=== PATIENT | male | born 1995 | race Caucasian/White ===

== ENCOUNTER 2018-07-06 10:44 | Inpatient (IN) ==
[2018-07-06 11:35] LABS: Basophils # (auto) 0.07 K/uL (0-0.2); Basophils % (auto) 0.8 %; Eosinophils # (auto) 0.41 K/uL (0-0.5); Eosinophils % (auto) 4.9 %; Hematocrit (blood only) 46.4 % (42-52); Immature Granulocytes # (auto) 0.02 K/uL (0.00-0.02); Immature Granulocytes % (auto) 0.2 %; Lymphocytes # (auto) 3.61 K/uL (1.2-3.4); Lymphocytes % (auto) 43.5 %; Mean Corpuscular Hgb Conc 34.5 g/dL (32-36); Mean Corpuscular Volume 87.9 fL (80-100); Mean Platelet Volume 10.6 fL (7.4-10.4); Monocytes % (auto) 10.9 %; Neutrophils # (auto) 3.28 K/uL (1.4-6.5); Neutrophils % (auto) 39.7 %; Platelet Count 353 K/uL (130-400); RDW Coefficient of Variation 13.1 % (11.5-14.5); RDW Standard Deviation 42.2 fL (36.4-46.3); Red Blood Count 5.28 M/uL (4.7-6.1); White Blood Count 8.29 K/uL (4.8-10.8)
[2018-07-06 11:53] LABS: Appearance Urine Clear (Clear); Bilirubin Urine Negative (Negative); Blood Urine Negative (Negative); Color Urine Dark Yellow; Glucose Urine UA Negative (Negative); Ketones Urine Trace (Negative); Leukocyte Esterase Urine Negative (Negative); Nitrite Urine Negative (Negative); Protein Urine Negative (Negative); Specific Gravity Urine 1.027 (1.000-1.030); Urobilinogen Urine Negative (Negative)
[2018-07-06 12:02] LABS: Albumin Level 4.2 gm/dl (3.4-5.0); BUN Creatinine Ratio 13.4 (10-20); Creatinine Clr Calc Pharmacy 125.6 ml/min; Est GFR (Non-African American) 123.4
[2018-07-06 12:13] LABS: Bilirubin,Total 0.9 mg/dl (0.2-1); Globulin 4.1 gm/dl (2.5-4.0); Potassium 4.4 mmol/L (3.5-5.1); Total Protein 8.3 gm/dl (6.4-8.2)
[2018-07-06 12:19] LABS: Amphetamines+Metham, Urine Neg (Neg); Barbiturates, Urine Neg (Neg); Benzodiazepine, Urine Neg (Neg); Cocaine, Urine Neg (Neg); MDMA (Ecstacy), Urine Neg (Neg); Methadone, Urine Neg (Neg); Opiate, Urine Neg (Neg); Phencyclidine, Urine Neg (Neg)
[2018-07-06 12:24] LABS: Acetaminophen < 2 ug/ml (10-30)
[2018-07-06 12:25] LABS: Salicylate < 1.7 mg/dl (2.8-20)
[2018-07-06] MEDS ORDERED: SODIUM CHLORIDE 0.65% NA SOLN 45 ML (OCEAN) PRN (14:08)
[2018-07-06] MEDS ORDERED: ACETAMINOPHEN 325 MG TAB PO PRN (14:08)
[2018-07-06] MEDS ORDERED: BISMUTH SUBSALICYLATE PER ML OMNICELL CHARGE PO PRN (14:08)
[2018-07-06] MEDS ORDERED: ALUMINUM/MAGNESIUM SUSP 30 ML UDC PO PRN (14:08)
[2018-07-06] MEDS ORDERED: MAGNESIUM HYDROXIDE SUSP 30 ML UDC PO PRN (14:08)
[2018-07-06] MEDS ORDERED: IBUPROFEN 200 MG TAB PO PRN (14:10)
--- NOTE | 2018-07-06 16:57 | Emergency Department Note ---
Entered by Sarah Feliciano acting as a scribe for Satya Keen DO History of Present Illness General Chief complaint: Mental Health Evaluation Stated complaint: DOESN'T FEEL SAFE Source: patient and other (spring encaser) History of Present Illness Provider complaint: mental health evaluation Onset (ago): hour(s) (today) Location: head Quality: + other (mental health evaluation) Associated symptoms: + denies other symptoms (denies abdominal pain); no fever/chills The patient is a 22 year old male who presents to the Emergency Room with complaints of a mental health evaluation today. The spring encaser states that the patient is seen at [facility] and identifies as Lesley. Per spring encaser, the patient came to see her and reports that the patient was having thoughts of wanting to hurt herself and kill herself. Per worker, the patient reports hearing voices and seeing images in her head. The patient's spring encaser states that the patient does not feel safe by herself. The patient states that she has thought about killing herself with knives or shooting herself. The patient denies having fevers and abdominal pain. 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 and A total of 10 systems reviewed and were otherwise negative Physical Exam Vital Signs Vital Signs - 24 hr 07/06/18 10:57 07/06/18 14:30 07/06/18 15:52 Temperature 36.9 C 37.0 C Temperature Source Oral Oral Sepsis Recent Fever Within 48 Hours No Sepsis New/Unexplained Change in Mental Status No Sepsis Action Taken by Nursing No Action Required Pulse Rate 89 86 Pulse Rate [Right Brachial] 81 Pulse Rhythm [Right Brachial] Regular Pulse Strength [Right Brachial] Normal Respiratory Rate 18 18 18 Respiratory Effort / Characteristics Non-Labored Non-Labored Respiratory Depth Normal Normal Respiratory Pattern Regular Blood Pressure 161/99 H 147/79 H Blood Pressure [Right Arm] 152/90 H Blood Pressure Mean 119 Blood Pressure Mean [Right Arm] 110 Blood Pressure Position Sitting Blood Pressure Position [Right Arm] Sitting Pulse Oximetry 98 98 Oxygen Delivery Method Room Air Room Air GENERAL: Sitting up in bed, alert, well appearing, well nourished, no distress, non-toxic EYE EXAM: normal conjunctiva. OROPHARYNX: no exudate, no erythema, lips, buccal mucosa, and tongue normal and mucous membranes are moist NECK: supple, no nuchal rigidity, no adenopathy, non-tender LUNGS: Clear to auscultation. Normal chest wall mechanics HEART: no murmurs, S1 normal and S2 normal ABDOMEN: abdomen soft, non-tender, normo-active bowel, sounds, no masses, no rebound or guarding. BACK: Back is symmetrical on inspection and there is no deformity, no midline tenderness, no CVA tenderness. SKIN: no rashes and no bruising UPPER EXTREMITIES: upper extremities are grossly normal. LOWER EXTREMITIES: No pitting edema. NEURO EXAM: Normal sensorium, cranial nerves II-XII grossly intact, normal speech, no gross weakness of arms, no gross weakness of legs. PSYCH: Admits to with plan to stab or shoot self Course ED COURSE: Vital signs were reviewed and showed hypertension. The patients medical record was reviewed The above diagnostic studies were performed and reviewed. ED treatments and interventions as stated above. 1123: The patient was evaluated in room A7. A complete history and physical examination was performed. 1432: The patient was admitted to [facility]. Medical Decision Making Differential Diagnosis Etiologies such as psychiatric disorder, infection, hypoglycemia, electrolyte abnormalities, cardiac sources, intracerebral event, toxicological process, neurologic disorder, as well as others were entertained. Medical Records Attestation: I reviewed the patient's medical records. Home Medications Current Medication List: was personally reviewed by me Laboratory Data Attestation: I reviewed the patient's lab results. Result diagrams: 07/06/18 11:20 07/06/18 11:20 Lab Results 07/06/18 07/06/18 07/06/18 Range/Units 11:20 11:20 11:20 WBC 8.29 (4.8-10.8) K/uL RBC 5.28 (4.7-6.1) M/uL Hgb 16.0 (14.0-18.0) g/dL Hct 46.4 (42-52) % MCV 87.9 (80-100) fL MCH 30.3 (25-34) pg MCHC 34.5 (32-36) g/dL RDW Std Deviation 42.2 (36.4-46.3) fL RDW Coeff of Marika 13.1 (11.5-14.5) % Plt Count 353 (130-400) K/uL MPV 10.6 H (7.4-10.4) fL Immature Gran % (Auto) 0.2 % Neut % (Auto) 39.7 % Lymph % (Auto) 43.5 % Limestone % (Auto) 10.9 % Eos % (Auto) 4.9 % Baso % (Auto) 0.8 % Immature Gran # (Auto) 0.02 (0.00-0.02) K/uL Neut # (Auto) 3.28 (1.4-6.5) K/uL Lymph # (Auto) 3.61 H (1.2-3.4) K/uL Limestone # (Auto) 0.90 H (0.11-0.59) K/uL Eos # (Auto) 0.41 (0-0.5) K/uL Baso # (Auto) 0.07 (0-0.2) K/uL Sodium 138 (136-145) mmol/L Potassium 4.4 (3.5-5.1) mmol/L Chloride 105 (98-107) mmol/L Carbon Dioxide 29 (21-32) mmol/L Anion Gap 4.0 (3-11) BUN 12 (7-18) mg/dl Creatinine 0.87 (0.6-1.4) mg/dl Est Cr Clr Drug Dosing 125.6 ml/min Est GFR ( Amer) 143.0 Est GFR (Non-Af Amer) 123.4 BUN/Creatinine Ratio 13.4 (10-20) Glucose 93 (70-99) mg/dl Calcium 9.0 (8.5-10.1) mg/dl Total Bilirubin 0.9 (0.2-1) mg/dl AST 24 (15-37) U/L ALT 38 (12-78) U/L Alkaline Phosphatase 111 (45-117) U/L Total Protein 8.3 H (6.4-8.2) gm/dl Albumin 4.2 (3.4-5.0) gm/dl Globulin 4.1 H (2.5-4.0) gm/dl Albumin/Globulin Ratio 1.0 (0.9-2) TSH 2.780 (0.300-4.500) uIu/ml Urine Color Urine Appearance (Clear) Urine pH (4.5-7.5) Ur Specific Hewlett (1.000-1.030) Urine Protein (Negative) Urine Glucose (UA) (Negative) Urine Ketones (Negative) Urine Blood (Negative) Urine Nitrite (Negative) Urine Bilirubin (Negative) Urine Urobilinogen (Negative) Ur Leukocyte Esterase (Negative) Salicylates < 1.7 L (2.8-20) mg/dl Urine Opiates Screen (Neg) Ur Methadone, Qual (Neg) Acetaminophen < 2 L (10-30) ug/ml Urine Barbiturates (Neg) Ur Phencyclidine (PCP) (Neg) U Amphetamin/Meth Scrn (Neg) MDMA (Ecstasy) Screen (Neg) U Benzodiazepines Scrn (Neg) Ur Cocaine Metabolite (Neg) U Marijuana (THC) Screen (Neg) Ethyl Alcohol mg/dL (0-3) mg/dl 07/06/18 07/06/18 07/06/18 Range/Units 11:20 11:20 11:20 WBC (4.8-10.8) K/uL RBC (4.7-6.1) M/uL Hgb (14.0-18.0) g/dL Hct (42-52) % MCV (80-100) fL MCH (25-34) pg MCHC (32-36) g/dL RDW Std Deviation (36.4-46.3) fL RDW Coeff of Marika (11.5-14.5) % Plt Count (130-400) K/uL MPV (7.4-10.4) fL Immature Gran % (Auto) % Neut % (Auto) % Lymph % (Auto) % Limestone % (Auto) % Eos % (Auto) % Baso % (Auto) % Immature Gran # (Auto) (0.00-0.02) K/uL Neut # (Auto) (1.4-6.5) K/uL Lymph # (Auto) (1.2-3.4) K/uL Limestone # (Auto) (0.11-0.59) K/uL Eos # (Auto) (0-0.5) K/uL Baso # (Auto) (0-0.2) K/uL Sodium (136-145) mmol/L Potassium (3.5-5.1) mmol/L Chloride (98-107) mmol/L Carbon Dioxide (21-32) mmol/L Anion Gap (3-11) BUN (7-18) mg/dl Creatinine (0.6-1.4) mg/dl Est Cr Clr Drug Dosing ml/min Est GFR ( Amer) Est GFR (Non-Af Amer) BUN/Creatinine Ratio (10-20) Glucose (70-99) mg/dl Calcium (8.5-10.1) mg/dl Total Bilirubin (0.2-1) mg/dl AST (15-37) U/L ALT (12-78) U/L Alkaline Phosphatase (45-117) U/L Total Protein (6.4-8.2) gm/dl Albumin (3.4-5.0) gm/dl Globulin (2.5-4.0) gm/dl Albumin/Globulin Ratio (0.9-2) TSH (0.300-4.500) uIu/ml Urine Color Dark Yellow Urine Appearance Clear (Clear) Urine pH 5.0 (4.5-7.5) Ur Specific Hewlett 1.027 (1.000-1.030) Urine Protein Negative (Negative) Urine Glucose (UA) Negative (Negative) Urine Ketones Trace H (Negative) Urine Blood Negative (Negative) Urine Nitrite Negative (Negative) Urine Bilirubin Negative (Negative) Urine Urobilinogen Negative (Negative) Ur Leukocyte Esterase Negative (Negative) Salicylates (2.8-20) mg/dl Urine Opiates Screen Neg (Neg) Ur Methadone, Qual Neg (Neg) Acetaminophen (10-30) ug/ml Urine Barbiturates Neg (Neg) Ur Phencyclidine (PCP) Neg (Neg) U Amphetamin/Meth Scrn Neg (Neg) MDMA (Ecstasy) Screen Neg (Neg) U Benzodiazepines Scrn Neg (Neg) Ur Cocaine Metabolite Neg (Neg) U Marijuana (THC) Screen Neg (Neg) Ethyl Alcohol mg/dL < 3.0 (0-3) mg/dl Blood Pressure Blood Pressure Findings: Elevated blood pressure Blood Pressure Disposition: elevated BP felt to be situational MDM Narrative Patient is a 22-year-old male that presents the ER for suicidal ideations with a plan to shoot himself or cut himself. He is having a large amount of intrusive thoughts. Was brought over by nurse. Labs are obtained and showed no significant leukocytosis or anemia. BMP along with LFTs bilirubin and TSH was unremarkable. UA was negative. Tox was negative. Patient was evaluated by Nkechi from her psychiatric care managers. She was then evaluated by 3 S. and accepted on a 201 for suicidal ideations. Impression & Plan Mood disorder, Suicidal ideation Discharge Plan Visit Data *Final* Discharge Date/Time: 07/06/18 14:30 Chief Complaint: Mental Health Evaluation Stated Complaint: DOESN'T FEEL SAFE ED Provider: Satya Keen Discharge Problem: Mood disorder, Suicidal ideation Patient Disposition: Admitted As Inpatient Discharge Instructions Interventions: ED Discharge Assessment Last Done: 07/06/18 14:30 The cristiibe's documentation has been prepared under my direction and personally reviewed by me in its entirety. I confirm that the note above accurately reflects all work, treatment, procedures, and medical decision making performed by me.
[2018-07-06] MEDS ORDERED: DULOXETINE HCL 20 MG CAP PO SCH (21:00)
--- NOTE | 2018-07-07 10:36 | History & Physical ---
Date of Service July 07, 2018 Impression / Recommendations Impression 22-year-old male transgendered male to female, who prefers to be called "clear", admitted with severe depression and intrusive suicidal thoughts. He also admits to thoughts to hurt others but these are generalized and not specific in any way. He has been in treatment with his PCP, Lenora Rush and has been on Cymbalta which she feels has been helpful although dosage is only 40 mg. He agrees to allow dosage to be increased to 60 mg. We will maintain a medically necessary private room in deference to his gender wishes. We have talked about a family meeting although he is initially hesitant to involve anybody in his treatment not wanting anyone to see him when he is at his worst. He will need aftercare referrals for psychiatric care and we will coordinate with his current therapist, Renée Ortega PhD. At this time, the patient requires inpatient mental health treatment due to the severity of his condition and the risk for suicide if discharged. (1) Persistent depressive disorder with anxious distress, currently severe: 07/07 - Increase Cymbalta to 60 mg daily - FAmily meeting if indicated - Q 15 min checks for safety - Encourage participation in groups and individual counseling. - Refer for psychiatric follow up and coordinate with current therapist. - Assist the patient to explore healthy coping strategies. - Safety planning Present on Admission?: Yes (2) [id number] transgender person: 07/07 - Medically necessary private room - If not aware, educate about LGBTQ resources in our area Present on Admission?: Yes Inventory Assets Strengths: Willingness to engage in treatment Needs: Healthy coping strategies Risk Factors Assessment Male: Yes : Yes Do You Have Access To A Gun?: No (Although not sure that 1 of his roommates does not have a gun) Health Problems: No Mental Health Diagnoses: Yes Substance Use Disorders: No Previous Attempt: No Family History of Suicide: No Previous Psychiatric Hospitalization: No Protective Factors Assessment : No Responsible for Young Children: No Employed: Yes ([employer]) Supportive Family: Yes Psychiatric History Identifying Data LÓPEZ MENDEZ is a 22-year-old M who presented to the emergency department with the wrapper caser from his PCPs office, after he talked with them about having suicidal and homicidal thoughts. The patient is admitted voluntarily. Information is gathered from the patient and considered to be reliable. Chief Complaint "I do not know where to start.". History of Present Illness The patient is a 22-year-old male who is a lengthy historian. He indicates that he has had an attitude toward life since at least in middle school in which he thinks life is "greedy". He believes that life goals are on accomplishable and therefore not worth living for. He has had intermittent suicidal ideation that a become more prominent of late and having thoughts to harm others. He has had what he described as "intrusive thoughts" since he was young. Initially they would be thoughts about ripping up his beloved stuffed animals or breaking things but as he grew older they changed hurting himself or others. He denies any specific thoughts to hurt one person but just hurting people in general. When he was in school, his counselor thought he had a focus and attention problem which he believes he does. If it was not until 2-3 years ago when he saw a doctor who indicated that he was depressed, but the patient says that he did not buy it. He now believes he has been experiencing depression and is on Cymbalta as prescribed by his PCP, Lenora AN. He believes the medication has been helpful although when she has increased the dose he has felt somewhat more panicky. When he gets panicky he admits that more intrusive thoughts are present and he is somewhat hesitant and frightful of dosage changes. Yesterday while seeing his PCP, he admitted to these intrusive thoughts about hurting himself and others and she recommended he come to the emergency room and so the wrapper caser from their office walked with him from the office across the street to the emergency room. Today the patient continues to describe himself as depressed and is somewhat irr itable. He continues to say he has intermittent Flashes of suicidal ideation but says that if he sets a date to do something he is usually able to stop himself. The alternate to that thought is "if I am not happy by a certain date that I tell myself and going to kill myself". He indicates that prior to going on Cymbalta he had a great deal of difficulty sleeping but since going on the medicines he is sleeping in excess of 10 hours/day. He works 3-11 at his job at [employer] and so generally does not go to bed until 2 AM and does not get up till sometimes around 1 PM. He reports chronic anxiety with panic attacks that are triggered either by his intrusive thoughts or by thoughts about his gender issues. As of 2016 he decided he wanted to become a female and prefers to be called "Lesley". He has not started any formal therapy or treatment toward that goal. He indicates that he has a fear of being alone and fears that he would act on the intrusive thoughts if he were left alone too long. He denies any clear evidence of psychosis including auditory or visual hallucinations. He does admit to times of anger when he throws and breaks things but denies he has ever acted out against people. He denies any current self-injurious behaviors although remembers in high school when he was using a boiler repair supervisor that when he got hot enough he would rub it on his hand to hurt himself. He denies any compulsive or ritualized behaviors that accompany the intrusive thoughts. He reports episodes of perhaps a week at a time when his mood is "hippie vibe" meaning "everything is cool". He denies significant changes to his sleep pattern during these events and denies increase in goal-directed behaviors, spending behaviors or euphoria. Past Psychiatric History Previous Psych History: Saw school counselors and has been seeing Renée Ortega PhD since March 2018 on an almost weekly basis. Current Psychiatric Diagnosis: Depression Outpatient Services: Renée Ortega PhD Previous Psych Admissions: Denies Do You Have Access To A Gun?: No (Although not sure that 1 of his roommates does not have a gun) History of Previous Suicide Attempt: No Past Medication Trials: None Allergies Allergy/AdvReac Type Severity Reaction Status Date / Time peanut Allergy Severe Swelling Verified 07/07/18 07:05 of Lip/Tongue/Throat tree nut Allergy Severe Swelling Verified 07/06/18 12:50 of Lip/Tongue/Throat Home Medications Home Medications Medication Instructions Recorded Confirmed Type duloxetine [Cymbalta] 40 mg PO QPM 07/06/18 07/06/18 History ibuprofen 400 mg PO QID PRN 07/06/18 07/06/18 History Family History Family History of: Depression and Alcoholism/Drug Abuse (Father with alcohol abuse) Family Mental Health History Comment: Mom and brother depression Alcohol History Hx of Alcohol Use Over the Past 12 Months: Yes AUDIT Total Score: 5 Smoking Use Have You Smoked or Used Tobacco Products in the Last 30 Days: No Smoking Status: Former smoker Substance History Hx of Prescription Med Misuse Over the Past 12 Months: No Hx of Over the Counter Med Misuse Over the Past 12 Months: No Hx of Inhalent Misuse Over the Past 12 Months: No Hx of Organic Substance Use Over the Past 12 Months: No Hx of Illegal Substances/Street Drug Use Over Past 12 Months: No Problems as a Result of Past Substance Use: None Identified Personal History Living Arrangements: APartment (With 2 male roommates) Born In: [place] Childhood: Grew up in [place] having moved to the [facility] about 5 years ago. Raised by his parents until they . Mother is remarried and he has an okay relationship with his stepfather. He has 1 older brother, 2 younger brothers and one younger sister. He does not have a good relationship with his father. Highest Grade Completed: G.E.D. 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[employer]) Marital Status: Single Number Of Children: none Beliefs That Will Affect Care: None Current Legal Problems: No Hx Legal Problems: No Hx Traumatic Life Events: No Patient History Medical History Pilonidal abscess (Resolved) Social History Preferred Language: South Korean Communication Ability: Effective Chief Technology Officer Required: No Beliefs That Will Affect Care: None Feels Safe at Home: Yes Smoking Status: Former smoker Review of Systems All systems reviewed & are unremarkable except as noted in HPI & below Physical Exam Mental Examination Physical exam performed by Dr. Keen in the emergency department has been reviewed and accepted his medical clearance for our unit. Psychiatric Orientation: alert and cooperative Apperance: appropriately dressed (Thinning hair, wearing a T-shirt and scrub pants) Eye Contact: + poor eye contact (Looks at the wall while he talks) Motor Behavior: steady gait and station and no abnormal motor movements Speech: normal rate/rhythm/volume of speech Affect: + anxious affect and + flat affect Mood: + depressed mood and + anxious mood Thought Process: goal directed thought process (But overly inclusive and digressive) Thought Content: reality based without delusions Suicidal Thoughts: + reports suicidal thoughts and + reports suicidal plan Homicidal Thoughts: denies homicidal thoughts Hallucinations: no auditory hallucinations and no visual hallucinations Cognition: recent memory grossly intact, remote memory grossly intact, attention grossly intact and language grossly intact Estimated Intelligence: consistent with education level Insight: + impaired insight Judgement: + impaired judgement Vital Signs (Past 24 Hours) Last Vital Signs Temp 36.5 C 07/07/18 06:46 Pulse 84 07/07/18 06:47 Resp 16 07/07/18 06:46 BP 131/90 07/07/18 06:47 Pulse Ox 98 07/06/18 14:30 Results & Data Laboratory Results Laboratory Results - last 24 hr 07/06/18 07/06/18 07/06/18 11:20 11:20 11:20 WBC 8.29 RBC 5.28 Hgb 16.0 Hct 46.4 MCV 87.9 MCH 30.3 MCHC 34.5 RDW Std Deviation 42.2 RDW Coeff of Marika 13.1 Plt Count 353 MPV 10.6 H Immature Gran % (Auto) 0.2 Neut % (Auto) 39.7 Lymph % (Auto) 43.5 Giles % (Auto) 10.9 Eos % (Auto) 4.9 Baso % (Auto) 0.8 Immature Gran # (Auto) 0.02 Neut # (Auto) 3.28 Lymph # (Auto) 3.61 H Giles # (Auto) 0.90 H Eos # (Auto) 0.41 Baso # (Auto) 0.07 Sodium 138 Potassium 4.4 Chloride 105 Carbon Dioxide 29 Anion Gap 4.0 BUN 12 Creatinine 0.87 Est Cr Clr Drug Dosing 125.6 Est GFR ( Amer) 143.0 Est GFR (Non-Af Amer) 123.4 BUN/Creatinine Ratio 13.4 Glucose 93 Calcium 9.0 Total Bilirubin 0.9 AST 24 ALT 38 Alkaline Phosphatase 111 Total Protein 8.3 H Albumin 4.2 Globulin 4.1 H Albumin/Globulin Ratio 1.0 TSH 2.780 Urine Color Urine Appearance Urine pH Ur Specific [place] Urine Protein Urine Glucose (UA) Urine Ketones Urine Blood Urine Nitrite Urine Bilirubin Urine Urobilinogen Ur Leukocyte Esterase Salicylates < 1.7 L Urine Opiates Screen Ur Methadone, Qual Acetaminophen < 2 L Urine Barbiturates Ur Phencyclidine (PCP) U Amphetamin/Meth Scrn MDMA (Ecstasy) Screen U Benzodiazepines Scrn Ur Cocaine Metabolite U Marijuana (THC) Screen Ethyl Alcohol mg/dL 07/06/18 07/06/18 07/06/18 11:20 11:20 11:20 WBC RBC Hgb Hct MCV MCH MCHC RDW Std Deviation RDW Coeff of Marika Plt Count MPV Immature Gran % (Auto) Neut % (Auto) Lymph % (Auto) Giles % (Auto) Eos % (Auto) Baso % (Auto) Immature Gran # (Auto) Neut # (Auto) Lymph # (Auto) Giles # (Auto) Eos # (Auto) Baso # (Auto) Sodium Potassium Chloride Carbon Dioxide Anion Gap BUN Creatinine Est Cr Clr Drug Dosing Est GFR ( Amer) Est GFR (Non-Af Amer) BUN/Creatinine Ratio Glucose Calcium Total Bilirubin AST ALT Alkaline Phosphatase Total Protein Albumin Globulin Albumin/Globulin Ratio TSH Urine Color Dark Yellow Urine Appearance Clear Urine pH 5.0 Ur Specific [place] 1.027 Urine Protein Negative Urine Glucose (UA) Negative Urine Ketones Trace H Urine Blood Negative Urine Nitrite Negative Urine Bilirubin Negative Urine Urobilinogen Negative Ur Leukocyte Esterase Negative Salicylates Urine Opiates Screen Neg Ur Methadone, Qual Neg Acetaminophen Urine Barbiturates Neg Ur Phencyclidine (PCP) Neg U Amphetamin/Meth Scrn Neg MDMA (Ecstasy) Screen Neg U Benzodiazepines Scrn Neg Ur Cocaine Metabolite Neg U Marijuana (THC) Screen Neg Ethyl Alcohol mg/dL < 3.0 Current Inpatient Medications Current Inpatient Medications: Current Inpatient Medications Acetaminophen (Tylenol) 650 mg PO Q4H PRN PRN Reason: Headache or Minor Fever Stop: 08/05/18 14:07 Al Hydrox/Mg Hydrox/Simethicone (Maalox) 30 ml PO Q4H PRN PRN Reason: GI Upset Stop: 08/05/18 14:07 Bismuth Subsalicylate (Kaopectate) 15 ml PO PRN PRN PRN Reason: Loose Stool Stop: 08/05/18 14:07 Duloxetine HCl (Cymbalta) 40 mg PO QPM CHALINO Stop: 08/05/18 20:59 Last Admin: 07/06/18 21:34 Dose: 40 mg Documented by: Hydroxyzine HCl (Vistaril) 25 mg PO Q4H PRN PRN Reason: Anxiety Stop: 08/05/18 14:07 Hydroxyzine HCl (Vistaril) 50 mg PO HSZ PRN PRN Reason: Insomnia Stop: 08/05/18 14:07 Ibuprofen (Advil) 400 mg PO QID PRN PRN Reason: Pain Stop: 08/05/18 14:09 Magnesium Hydroxide (Milk Of Magnesia) 30 ml PO DAILY PRN PRN Reason: Heartburn Stop: 08/05/18 14:07 Sodium Chloride ([place] Nasal) 1 - 2 sprays NA PRN PRN PRN Reason: Nasal Dryness/Congestion Stop: 08/05/18 14:07 CPT Code CPT Code Initial Hospital Care: 90607
[2018-07-07] MEDS: DULOXETINE HCL 60 MG CAP PO SCH (21:26)
--- NOTE | 2018-07-08 10:25 | History & Physical ---
Date of Service July 08, 2018 Impression / Recommendations Impression 22-year-old male transgendered male to female, who prefers to be called "clear", admitted with severe depression and intrusive suicidal thoughts. He also admits to thoughts to hurt others but these are generalized and not specific in any way. He has been in treatment with his PCP, Lenora Rush and has been on Cymbalta which she feels has been helpful although dosage is only 40 mg. He agrees to allow dosage to be increased to 60 mg. We will maintain a medically necessary private room in deference to his gender wishes. We have talked about a family meeting although he is initially hesitant to involve anybody in his treatment not wanting anyone to see him when he is at his worst. He will need aftercare referrals for psychiatric care and we will coordinate with his current therapist, Renée Ortega PhD. At this time, the patient requires inpatient mental health treatment due to the severity of his condition and the risk for suicide if discharged. Inventory Assets Strengths: Willingness to engage in treatment Needs: Healthy coping strategies Risk Factors Assessment Male: Yes : Yes Do You Have Access To A Gun?: No (Although not sure that 1 of his roommates does not have a gun) Health Problems: No Mental Health Diagnoses: Yes Substance Use Disorders: No Previous Attempt: No Family History of Suicide: No Previous Psychiatric Hospitalization: No Protective Factors Assessment : No Responsible for Young Children: No Employed: Yes ([employer]) Supportive Family: Yes Psychiatric History Identifying Data LÓPEZ MENDEZ is a 22-year-old M who currently lives in [] [alone] with [], has a history of [], and was admitted on 07/06/18 14:08 on a [201 voluntary] [302 involuntary] commitment for []. Chief Complaint "[]". History of Present Illness The patient is a 22-year-old male who is a lengthy historian. He indicates that he has had an attitude toward life since at least in middle school in which he thinks life is "greedy". He believes that life goals are on accomplishable and therefore not worth living for. He has had intermittent suicidal ideation that a become more prominent of late and having thoughts to harm others. He has had what he described as "intrusive thoughts" since he was young. Initially they would be thoughts about ripping up his beloved stuffed animals or breaking things but as he grew older they changed hurting himself or others. He denies any specific thoughts to hurt one person but just hurting people in general. When he was in school, his counselor thought he had a focus and attention problem which he believes he does. If it was not until 2-3 years ago when he saw a doctor who indicated that he was depressed, but the patient says that he did not buy it. He now believes he has been experiencing depression and is on Cymbalta as prescribed by his PCP, Lenora AN. He believes the medication has been helpful although when she has increased the dose he has felt somewhat more panicky. When he gets panicky he admits that more intrusive thoughts are present and he is somewhat hesitant and frightful of dosage changes. Yesterday while seeing his PCP, he admitted to these intrusive thoughts about hurting himself and others and she recommended he come to the emergency room and so the binder caser from their office walked with him from the office across the street to the emergency room. Today the patient continues to describe himself as depressed and is somewhat irritable. He continues to say he has intermittent Flashes of suicidal ideation but says that if he sets a date to do something he is usually able to stop himself. The alternate to that thought is "if I am not happy by a certain date that I tell myself and going to kill myself". He indicates that prior to going on Cymbalta he had a great deal of difficulty sleeping but since going on the medicines he is sleeping in excess of 10 hours/day. He works 3-11 at his job at [employer] and so generally does not go to bed until 2 AM and does not get up till sometimes around 1 PM. He reports chronic anxiety with panic attacks that are triggered either by his intrusive thoughts or by thoughts about his gender issues. As of 2016 he decided he wanted to become a female and prefers to be called "Lesley". He has not started any formal therapy or treatment toward that goal. He indicates that he has a fear of being alone and fears that he would act on the intrusive thoughts if he were left alone too long. He denies any clear evidence of psychosis including auditory or visual hallucinations. He d oes admit to times of anger when he throws and breaks things but denies he has ever acted out against people. He denies any current self-injurious behaviors although remembers in high school when he was using a director credit risk that when he got hot enough he would rub it on his hand to hurt himself. He denies any compulsive or ritualized behaviors that accompany the intrusive thoughts. He reports episodes of perhaps a week at a time when his mood is "hippie vibe" meaning "everything is cool". He denies significant changes to his sleep pattern during these events and denies increase in goal-directed behaviors, spending behaviors or euphoria. Past Psychiatric History Current Psychiatric Diagnosis: Depression Do You Have Access To A Gun?: No (Although not sure that 1 of his roommates does not have a gun) History of Previous Suicide Attempt: No Allergies Allergy/AdvReac Type Severity Reaction Status Date / Time peanut Allergy Severe Swelling Verified 07/07/18 07:05 of Lip/Tongue/Throat tree nut Allergy Severe Swelling Verified 07/06/18 12:50 of Lip/Tongue/Throat Home Medications Home Medications Medication Instructions Recorded Confirmed Type duloxetine [Cymbalta] 40 mg PO QPM 07/06/18 07/06/18 History ibuprofen 400 mg PO QID PRN 07/06/18 07/06/18 History Family History Family History of: Depression and Alcoholism/Drug Abuse (Father with alcohol abuse) Family Mental Health History Comment: mother takes antidepressant, brother has been hospitalized in the past (doesn't know the details), Alcohol History Hx of Alcohol Use Over the Past 12 Months: Yes AUDIT Total Score: 5 Smoking Use Have You Smoked or Used Tobacco Products in the Last 30 Days: No Smoking Status: Former smoker Substance History Hx of Prescription Med Misuse Over the Past 12 Months: No Hx of Over the Counter Med Misuse Over the Past 12 Months: No Hx of Inhalent Misuse Over the Past 12 Months: No Hx of Organic Substance Use Over the Past 12 Months: No Hx of Illegal Substances/Street Drug Use Over Past 12 Months: No Problems as a Result of Past Substance Use: None Identified Personal History Living Arrangements: APartment (With 2 male roommates) Living Arrangements Comments: living in [facility] with 2 housemates, some support from them but on superficial level and they don't know that he is in the hospital. Born In: [place] Highest Grade Completed: G.E.D. Highest Grade Completed Comment: Dropped out of school in 10th grade but says skipped a lot of school in 9th and 10th grade. Looking into college. 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) Marital Status: Single Number Of Children: 0 Beliefs That Will Affect Care: None Hx Legal Problems: No Hx Traumatic Life Events: No Patient History Medical History Pilonidal abscess (Resolved) Social History Preferred Language: Urdu Communication Ability: Effective Blender/Braze Applicator Required: No Beliefs That Will Affect Care: None Feels Safe at Home: Yes Smoking Status: Former smoker Physical Exam Vital Signs (Past 24 Hours) Last Vital Signs Temp 36.4 C L 07/08/18 06:28 Pulse 87 07/08/18 06:28 Resp 18 07/08/18 06:28 BP 139/92 07/08/18 06:28 Pulse Ox 98 07/06/18 14:30 Results & Data Current Inpatient Medications Current Inpatient Medications: Current Inpatient Medications Acetaminophen (Tylenol) 650 mg PO Q4H PRN PRN Reason: Headache or Minor Fever Stop: 08/05/18 14:07 Al Hydrox/Mg Hydrox/Simethicone (Maalox) 30 ml PO Q4H PRN PRN Reason: GI Upset Stop: 08/05/18 14:07 Bismuth Subsalicylate (Kaopectate) 15 ml PO PRN PRN PRN Reason: Loose Stool Stop: 08/05/18 14:07 Duloxetine HCl (Cymbalta) 60 mg PO QPM CHALINO Stop: 08/06/18 20:59 Last Admin: 07/07/18 21:26 Dose: 60 mg Documented by: Hydroxyzine HCl (Vistaril) 25 mg PO Q4H PRN PRN Reason: Anxiety Stop: 08/05/18 14:07 Hydroxyzine HCl (Vistaril) 50 mg PO HSZ PRN PRN Reason: Insomnia Stop: 08/05/18 14:07 Last Admin: 07/07/18 23:40 Dose: 50 mg Documented by: Ibuprofen (Advil) 400 mg PO QID PRN PRN Reason: Pain Stop: 08/05/18 14:09 Magnesium Hydroxide (Milk Of Magnesia) 30 ml PO DAILY PRN PRN Reason: Heartburn Stop: 08/05/18 14:07 Sodium Chloride ([place] Nasal) 1 - 2 sprays NA PRN PRN PRN Reason: Nasal Dryness/Congestion Stop: 08/05/18 14:07 CPT Code CPT Code Initial Hospital Care: [id number]
--- NOTE | 2018-07-08 13:09 | Psychiatric Progress Note ---
Date of Service July 08, 2018 Impression / Recommendations Impression Pt reports feeling he is adjusting well to the unit. Able to focus on his perceptions about social interactions, feeling people should be as nice to him as he is to them - but recognizing he can also be negative at times. Thoughts are more hopeful and he admits mood is mildly improved. No evidence of activation with increased dose of duloxetine last evening. He does, however, admit that the restlessness he experiences is often delayed about a week from dose increases. Suggested he continue to monitor sleep, and offered hydroxyzine as necessary. Showing mild improvement, but given reports of suicidal and homicidal ideation at admission, would be beneficial to continue to observe mood to ensure stability, especially with recent medication changes. Pt is at increased risks of harm to self and others if discharged prematurely. (1) Persistent depressive disorder with anxious distress, currently severe: 07/07 - Increase Cymbalta to 60 mg daily - FAmily meeting if indicated - Q 15 min checks for safety - Encourage participation in groups and individual counseling. - Refer for psychiatric follow up and coordinate with current therapist. - Assist the patient to explore healthy coping strategies. - Safety planning 07/08 - Continue current medication regimen, observing for activation following dose increase yesterday - Encouraged ongoing participation in group and recreational therapies - Recommend exploration of supports which could be involved in a family meeting (2) [id number] transgender person: 07/07 - Medically necessary private room - If not aware, educate about LGBTQ resources in our area Risk Factors Assessment Male: Yes : Yes Do You Have Access To A Gun?: No (Although not sure that 1 of his roommates does not have a gun) Health Problems: No Mental Health Diagnoses: Yes Substance Use Disorders: No Previous Attempt: No Family History of Suicide: No Previous Psychiatric Hospitalization: No Protective Factors Assessment : No Responsible for Young Children: No Employed: Yes ([employer]) Supportive Family: Yes Interval History Identifying Information LÓPEZ MENDEZ is a 22-year-old M who presented to the emergency department with the child support case officer from his PCPs office, after he talked with them about having suicidal and homicidal thoughts. The patient is admitted voluntarily. Information is gathered from the patient and considered to be reliable. Chief Complaint "Everything has just slowed down a bit, like I don't feel like I have to get everything done". Review of Systems Notes Constitutional: reports difficulty falling asleep last evening Cardiovascular: denied Respiratory: denied Gastrointestinal: denied Neurological: denied Psychiatric: denies symptoms other than stated above Total of at least 10 systems reviewed, pertinent positives as above and in HPI. Sleep Information Total Hours of Sleep: 6.25 Sleep Comments: received an hs prn dose of vistaril for sleep aid Meal Information Percent Meal Consumed - Breakfast: 100 Percent Meal Consumed - Lunch: 100 Percent Meal Consumed - Dinner: 100 Subjective Subjective Patient was seen & assessed and interval progress reviewed with Nursing. Pt reports feeling as though he has been able to reflect on his stressors and analyze his needs moving forward. Pt states he had often felt he was on a "timer" to get things done and "had to do everything in the most optimal way." He states this setting has helped to calm down those thoughts and allow him to focus on his needs. He does admit that he has been attempting to reframe thoughts regarding social interactions - "I feel like if I'm putting effort into being nice to someone, I never get the same effort back." Pt states he plans to enter these interactions with more positivity in the future. Pt denies any feelings of increased anxiety or restlessness following increased dose of duloxetine. He does, however, admit that those feelings are often delayed and occurred about 1 week after initiating the medication and again after increasing the dose previously. Symptoms reported during these times include increased radha quency of panic attacks, increased intrusive thoughts, and desire to sleep more to escape the uncomfortable feelings. He denies clear hypomania/emilie during these episodes. Pt is feeling supported here and believes his treatment to be beneficial thus far. He denies any needs or concerns today. Physical Exam Psychiatric Orientation: alert, oriented x 3 and cooperative Apperance: appropriately dressed and appropriately groomed biologically male patient with long hair, wearing glasses Eye Contact: good eye contact Motor Behavior: steady gait and station and no abnormal motor movements Speech: normal rate/rhythm/volume of speech Affect: + depressed affect (mildly) Mood: + depressed mood and + anxious mood Thought Process: goal directed thought process, linear/logical thought process and clear/coherent thought process Thought Content: reality based without delusions Suicidal Thoughts: denies suicidal thoughts Homicidal Thoughts: denies homicidal thoughts Hallucinations: no auditory hallucinations and no visual hallucinations Cognition: recent memory grossly intact, remote memory grossly intact, attention grossly intact and language grossly intact Estimated Intelligence: consistent with education level Insight: + fair insight Judgement: + fair judgement Vital Signs (Past 24 Hours) Last Vital Signs Temp 36.4 C L 07/08/18 06:28 Pulse 87 07/08/18 06:28 Resp 18 07/08/18 06:28 BP 139/92 07/08/18 06:28 Pulse Ox 98 07/06/18 14:30 Results & Data Current Inpatient Medications Current Inpatient Medications: Current Inpatient Medications Acetaminophen (Tylenol) 650 mg PO Q4H PRN PRN Reason: Headache or Minor Fever Stop: 08/05/18 14:07 Al Hydrox/Mg Hydrox/Simethicone (Maalox) 30 ml PO Q4H PRN PRN Reason: GI Upset Stop: 08/05/18 14:07 Bismuth Subsalicylate (Kaopectate) 15 ml PO PRN PRN PRN Reason: Loose Stool Stop: 08/05/18 14:07 Duloxetine HCl (Cymbalta) 60 mg PO QPM CHALINO Stop: 08/06/18 20:59 Last Admin: 07/07/18 21:26 Dose: 60 mg Documented by: Hydroxyzine HCl (Vistaril) 25 mg PO Q4H PRN PRN Reason: Anxiety Stop: 08/05/18 14:07 Hydroxyzine HCl (Vistaril) 50 mg PO HSZ PRN PRN Reason: Insomnia Stop: 08/05/18 14:07 Last Admin: 07/07/18 23:40 Dose: 50 mg Documented by: Ibuprofen (Advil) 400 mg PO QID PRN PRN Reason: Pain Stop: 08/05/18 14:09 Magnesium Hydroxide (Milk Of Magnesia) 30 ml PO DAILY PRN PRN Reason: Heartburn Stop: 08/05/18 14:07 Sodium Chloride ([place] Nasal) 1 - 2 sprays NA PRN PRN PRN Reason: Nasal Dryness/Congestion Stop: 08/05/18 14:07 Post Discharge Appointments [facility] Time of Appointment with PCP: follow up as needed. Provider Appointment Comment: [address], [address], [place] [address] Psychiatrist Name of Psychiatrist: Betzaida Dennis? Psychiatrist's Therapist Name of Therapist: Dr. Renée Chery Therapist's Date of Therapist Appointment: 07/15/18 Time of Therapist Appointment: 11am Therapy Appointment Comment: [id number], [place] [address] Aligning Inspector Name of Aligning Inspector: None Contact Information Discharge Discharge Address: [address] [place] [address], [place], [place] [address] CPT Code CPT Code 72938
[2018-07-08] MEDS: DULOXETINE HCL 60 MG CAP PO SCH (21:04)
--- NOTE | 2018-07-09 10:10 | Discharge Summary ---
Date of Service July 09, 2018 History of Present Illness The patient is a 22-year-old female (transgendered) who calls herself "Lesley." She indicates that she has had an attitude toward life since at least in middle school in which she thinks life is "greedy". She believes that life goals are on accomplishable and therefore not worth living for. The patient has had intermittent suicidal ideation that a become more prominent of late and having thoughts to harm others. She has had what he described as "intrusive thoughts" since she was young. Initially they would be thoughts about ripping up her beloved stuffed animals or breaking things but as she grew older they changed to hurting herself or others. The patient denies any specific thoughts to hurt any one person, but just hurting people in general. When she was in school, her counselor thought she had a focus and attention problem which she believes he does. If it was not until 2-3 years ago when she saw a doctor who indicated that she was depressed, but the patient says that she did not buy it. She now believes she has been experiencing depression and is on Cymbalta as prescribed by his PCP, Lenora AN. She believes the medication has been helpful although when she has increased the dose the patient has felt somewhat more panicky. When she gets panicky he admits that more intrusive thoughts are present and he is somewhat hesitant and frightful of dosage changes. Yesterday while seeing her PCP, she admitted to these intrusive thoughts about hurting herself and others and she recommended he come to the emergency room and so the bottle caser from their office walked with her from the office across the street to the emergency room. Physical Exam Psychiatric Orientation: oriented x 3 Apperance: appropriately dressed and appropriately groomed Eye Contact: + fair eye contact Motor Behavior: steady gait and station Speech: normal rate/rhythm/volume of speech Affect: euthymic affect "Kind of nervous, but okay." Thought Process: goal directed thought process S Somewhat over-inclusive. The patient denies current suicidal thoughts, but notes that she has had recurrent thoughts of suicide for approximately the last ten years. No history of acting on these thoughts, and the patient reports that these thoughts are not associated with suicidal intent. The patient denies current homicidal thoughts, although she had alien, intrusive, non-specific thoughts of harming others prior to admission. The patient notes that these thoughts have not been associcated with any intent to act on them. Hallucinations: no auditory hallucinations Cognition: recent memory grossly intact, remote memory grossly intact, attention grossly intact and language grossly intact Estimated Intelligence: + above average estimated intelligence Insight: + fair insight Judgement: good judgement Vital Signs (Past 24 Hours) Last Vital Signs Temp 36.3 C L 07/09/18 09:24 Pulse 84 07/09/18 09:24 Resp 16 07/09/18 09:24 BP 135/89 07/09/18 09:24 Pulse Ox 98 07/09/18 09:24 Principal Diagnosis Major Depressive Disorder, Recurrent (complicated by intrusive, alien obsessive thoughts). Psychiatric Data During the course of hospitalization the patient was offered various modalities of psychotherapy. These included individual, group, activity, and milieu therapy. Her outpatient dose of duloxetine was increased from 40 mg daily to a dose of 60 mg daily, and the patient was able to tolerate to this change without noted side effects. She reports that she began feeling better shortly after admission, and during the stay identified certain coping strategies through which she has been better able to manage the intrusive, alien obsessional thoughts that precipitated the admission. She did, however, continue to have certain obsessional thoughts, such as the thought to pick out hand a breakable objects and break it, but without intent to act on the thoughts. She finds such thoughts to be entirely alien from her sense of self and her sense of moral behavior, and, therefore, finds the obsessional thoughts to be both distressing and anxiety provoking. During the hospital stay, we were able to explore her intrusive thoughts, educate the patient regarding the nature of these thoughts, and provided reassurances. She acknowledges that she has had frequent, intrusive thoughts of suicide for much of her life, at least since she was in [employer]. These thoughts have never led to any actual intentional self-harm. More recently, she had started experiencing intrusive, alien, obsessional thoughts of somehow harming other people, without any identified target or specific plan. The patient found these thoughts to be particularly distressing, but she was able to recognize that these are best explained by her obsessional thinking, and neither associated with any genuine intent nor or any significant risk. She does provide a history that suggests long-standing difficulty with concentration, focusing, and avoiding unnecessary distractions. She describes being very easily distracted by extraneous thoughts and feels that this may have been 1 of the reasons why she dropped out of high school. She also has significant anxiety at baseline, possibly both as a function of her intrusive obsessive thoughts and the fact that she often feels overwhelmed by competing demands and thoughts. Although not a reason to remain hospitalized, we have suggested to the patient that she discuss the possibility of exploring additional antiobsessional medication treatments with her outpatient psychiatrist. There may also be a consideration of further evaluation of possible attention deficit difficulties. Day of Discharge Assessment At the time of discharge the patient's affect was euthymic and she describes her mood as "nervous, but okay." Her affect was slightly anxious, but generally euthymic. While the patient's thought processes were goal oriented, she was somewhat overinclusive and, at times, circumferential in her thinking. The thought content includes persistent intrusive aliens thoughts, such as an intrusive thought of breaking inanimate objects, but these thoughts are not associated with any plan or intent. There is no evidence of any psychotic features. There is also no evidence of any perceptual disturbances. The patient reports that she does not have any current suicidal or homicidal thoughts, but acknowledges that these thoughts have occurred intermittently in the past, although they have never been associated with any intentional physical harm to self or others, nor have they been associated with any intent to act on the thoughts. Transition of Care Transition Of Care Record: was reviewed with the patient Advance Directives Advance Directives Information Provided: Yes Advance Directives: No Mental Health Advance Directive: No Advance Directives on File: No Living Will: No Power of Central Supply Manager: No Advance Directives Reason:: Declines as Mental Health Visit. Risk Factors Assessment Male: No (The patient is transgendered) : Yes Do You Have Access To A Gun?: No (Although not sure that 1 of his roommates does not have a gun) Health Problems: No Mental Health Diagnoses: Yes Substance Use Disorders: No Previous Attempt: No Family History of Suicide: No Previous Psychiatric Hospitalization: No Hopelessness: No Protective Factors Assessment : No Responsible for Young Children: No Employed: Yes ([employer]) Supportive Family: Yes Tobacco Cessation at Discharge Tobacco Cessation Medication Prescribed at Discharge: Not Applicable/Non-Smoker Total Time Total Time Spent: Greater Than 30 Minutes Total Time Includes: Examination of the patient, Discharge Planning and Medication Reconciliation Discharge Data Lab Results 07/06/18 07/06/18 07/06/18 11:20 11:20 11:20 WBC 8.29 RBC 5.28 Hgb 16.0 Hct 46.4 MCV 87.9 MCH 30.3 MCHC 34.5 RDW Std Deviation 42.2 RDW Coeff of Marika 13.1 Plt Count 353 MPV 10.6 H Immature Gran % (Auto) 0.2 Neut % (Auto) 39.7 Lymph % (Auto) 43.5 [place] % (Auto) 10.9 Eos % (Auto) 4.9 Baso % (Auto) 0.8 Immature Gran # (Auto) 0.02 Neut # (Auto) 3.28 Lymph # (Auto) 3.61 H [place] # (Auto) 0.90 H Eos # (Auto) 0.41 Baso # (Auto) 0.07 Sodium 138 Potassium 4.4 Chloride 105 Carbon Dioxide 29 Anion Gap 4.0 BUN 12 Creatinine 0.87 Est Cr Clr Drug Dosing 125.6 Est GFR ( Amer) 143.0 Est GFR (Non-Af Amer) 123.4 BUN/Creatinine Ratio 13.4 Glucose 93 Calcium 9.0 Total Bilirubin 0.9 AST 24 ALT 38 Alkaline Phosphatase 111 Total Protein 8.3 H Albumin 4.2 Globulin 4.1 H Albumin/Globulin Ratio 1.0 TSH 2.780 Urine Color Urine Appearance Urine pH Ur Specific [place] Urine Protein Urine Glucose (UA) Urine Ketones Urine Blood Urine Nitrite Urine Bilirubin Urine Urobilinogen Ur Leukocyte Esterase Salicylates < 1.7 L Urine Opiates Screen Ur Methadone, Qual Acetaminophen < 2 L Urine Barbiturates Ur Phencyclidine (PCP) U Amphetamin/Meth Scrn MDMA (Ecstasy) Screen U Benzodiazepines Scrn Ur Cocaine Metabolite U Marijuana (THC) Screen Ethyl Alcohol mg/dL 07/06/18 07/06/18 07/06/18 11:20 11:20 11:20 WBC RBC Hgb Hct MCV MCH MCHC RDW Std Deviation RDW Coeff of Marika Plt Count MPV Immature Gran % (Auto) Neut % (Auto) Lymph % (Auto) [place] % (Auto) Eos % (Auto) Baso % (Auto) Immature Gran # (Auto) Neut # (Auto) Lymph # (Auto) [place] # (Auto) Eos # (Auto) Baso # (Auto) Sodium Potassium Chloride Carbon Dioxide Anion Gap BUN Creatinine Est Cr Clr Drug Dosing Est GFR ( Amer) Est GFR (Non-Af Amer) BUN/Creatinine Ratio Glucose Calcium Total Bilirubin AST ALT Alkaline Phosphatase Total Protein Albumin Globulin Albumin/Globulin Ratio TSH Urine Color Dark Yellow Urine Appearance Clear Urine pH 5.0 Ur Specific [place] 1.027 Urine Protein Negative Urine Glucose (UA) Negative Urine Ketones Trace H Urine Blood Negative Urine Nitrite Negative Urine Bilirubin Negative Urine Urobilinogen Negative Ur Leukocyte Esterase Negative Salicylates Urine Opiates Screen Neg Ur Methadone, Qual Neg Acetaminophen Urine Barbiturates Neg Ur Phencyclidine (PCP) Neg U Amphetamin/Meth Scrn Neg MDMA (Ecstasy) Screen Neg U Benzodiazepines Scrn Neg Ur Cocaine Metabolite Neg U Marijuana (THC) Screen Neg Ethyl Alcohol mg/dL < 3.0 Hospital Course (1) Persistent depressive disorder with anxious distress, currently severe: 07/07 - Increase Cymbalta to 60 mg daily - FAmily meeting if indicated - Q 15 min checks for safety - Encourage participation in groups and individual counseling. - Refer for psychiatric follow up and coordinate with current therapist. - Assist the patient to explore healthy coping strategies. - Safety planning 07/08 - Continue current medication regimen, observing for activation following dose increase yesterday - Encouraged ongoing participation in group and recreational therapies - Recommend exploration of supports which could be involved in a family meeting 07/09 -Patient's affect is generally euthymic, although somewhat anxious. She has no further thoughts of suicide or homicide, and many of the features evident at admission seem to have been a function of both depression and obsessive thoughts. She is tolerating the Cymbalta increase well, is future oriented. (2) [id number] transgender person: 07/07 - Medically necessary private room - If not aware, educate about LGBTQ resources in our area 07/09 - Educated regarding LGBTQ resources in the [place] area. Handout provided. Post Discharge Appointments Primary Care Physician [facility], saw Naga Vogel as casemanger Primary Care Time of Appointment with PCP: follow up as needed. Provider Appointment Comment: [address], [address], [place] [address] Psychiatrist Name of Psychiatrist: [facility]? Psychiatrist's Therapist Name of Therapist: Dr. Renée Chery Therapist's Date of Therapist Appointment: 07/15/18 Time of Therapist Appointment: 11am Therapy Appointment Comment: [id number], [place] [address] Product Support Analyst Name of Product Support Analyst: None Smoking Cessation Counseling Tobacco Cessation Medication Prescribed at Discharge: Not Applicable/Non-Smoker Contact Information Discharge Discharge Address: [facility] [address], [place] [address] Discharge Plan Discharge Items Patient Disposition: Home - Self-Care Reason For Visit: DEPRESSION Discharge Diagnosis: Depression (Complicated by Obsessive Compulsive Disorder) Discharge Goals: Specific goals Specific Goals: Reduce intrusive alien thoughts Activity: Resume your previous activity Activity Comment: May return to work on Thursday07/12/18 Non-emergency contact: Primary Care Provider and Psychiatrist Call non-emergency contact if: you have any medication questions and your symptoms worsen Follow-up/Referrals: Lenora Rush CRNP [Primary Care Provider] - Diet: Regular Addtl Provider Instructions: Remember: It gets better. Talk with your psychiatrist about possibly cross-titrating Cymbalta (duloxetine) with either Prozac or Zoloft, either of which may be more helpful with obsessive symptoms. Prescriptions: New duloxetine 60 mg Capsule,Delayed Release(Dr/Ec) 60 mg PO QPM Qty: 30 RF: 0 Continued ibuprofen 400 mg Tablet 400 mg PO QID PRN (Reason: Pain) RF: 0 Discontinued duloxetine [Cymbalta] 20 mg Capsule,Delayed Release(Dr/Ec) 40 mg PO QPM RF: 0 Stand-Alone Forms: [facility] Discharge Orders: Discharge Order (Routine); Ordered 07/09/18 Ordered By: Rony Chadwick Admission Data Admit Date/Time: 07/06/18 14:08 Attending Provider: Dotty Syed Admit Provider: Dotty Syed Primary Care Provider: Lenora Rush Service: Psychiatry Other Interventions: Discharge Summary Assessment (RN) Last Done: 07/09/18 09:24 PSY Interdisciplinary Discharge Planning Last Done: 07/08/18 10:03 Pending Studies at Discharge: No
== END 2018-07-09 11:29 | disposition home or self-care (01) | DRG 885 ==
LOC: ED 10:44 → 3S 14:08